=== PATIENT | male | born 1955 | race Caucasian/White ===

== ENCOUNTER 2016-07-11 23:28 | Emergency (ER) | payer OTHER, BC ==
[~2016-07-11] VITALS: Ht 175.3 cm; Wt 74.3 kg
[2016-07-11 23:32] VITALS: TEMP 36.5; Ht 175.3 cm; Wt 74.3 kg
[2016-07-11] MEDS ORDERED: ACETAMINOPHEN 500 MG TAB PO STA (23:38)
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
[2016-07-12 02:10] VITALS: BP 145/61; PULSE 70; O2SAT 97
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
== END 2016-07-12 02:13 | disposition home or self-care (01) ==
LOC: C.EDA 23:29
DX: S09.90XA Unspecified injury of head, initial encounter (principal); V43.52XA Car driver injured in collision with other type car in traffic accident, initial encounter; Y92.411 Interstate highway as the place of occurrence of the external cause